=== PATIENT | male | born 1945 | race Caucasian/White ===

== ENCOUNTER → 2018-07-06 | Outpatient (CLI) | payer MEDICARE, OTHER ==
[~2018-07-06] VITALS: Ht 167.6 cm; Wt 81.3 kg
[~2018-07-06] MED LIST: ASPI-556 PO; CINA30 PO; CLOP75 PO; FOLI1CAP16 PO; INSLAN SQ; LIDOCAINE 2% 5 ML JELLY TP ONE; MIDO5TAB23 PO; NYSTATIN 15 GM CREAM [WOUND CENTER ONLY] TP ONE; PHOSLOC PO; SEVEC800 PO; TNFMISC
[2018-07-06 09:35] VITALS: BP 173/74
[2018-07-06 09:54] LABS: GLUCOMETER DEV NAME(LOC) HBW; GLUCOSE,POINT OF CARE 92 MG/DL (70-110)
== END | disposition home or self-care (01) ==
LOC: HBOWC 09:23
PROVIDERS: ATTEND Emergency Medicine
DX: S91.302D Unspecified open wound, left foot, subsequent encounter (principal); M85.88 Other specified disorders of bone density and structure, other site; E11.42 Type 2 diabetes mellitus with diabetic polyneuropathy; E11.51 Type 2 diabetes mellitus with diabetic peripheral angiopathy without gangrene; I12.0 Hypertensive chronic kidney disease with stage 5 chronic kidney disease or end stage renal disease; E11.22 Type 2 diabetes mellitus with diabetic chronic kidney disease; N18.6 End stage renal disease; B35.3 Tinea pedis; Z99.2 Dependence on renal dialysis; Z89.421 Acquired absence of other right toe(s); X58.XXXD Exposure to other specified factors, subsequent encounter
CPT/HCPCS: 11042; 87070; 87205

== ENCOUNTER → 2018-07-13 | Outpatient (CLI) | payer MEDICARE, OTHER ==
[~2018-07-13] MED LIST changes: -NYSTATIN 15 GM CREAM [WOUND CENTER ONLY] TP ONE; -TNFMISC
[2018-07-13 08:20] VITALS: BP 135/62
== END | disposition home or self-care (01) ==
LOC: HBOWC 08:05
PROVIDERS: ATTEND Emergency Medicine
DX: S91.302D Unspecified open wound, left foot, subsequent encounter (principal); M85.88 Other specified disorders of bone density and structure, other site; E11.42 Type 2 diabetes mellitus with diabetic polyneuropathy; E11.51 Type 2 diabetes mellitus with diabetic peripheral angiopathy without gangrene; I12.0 Hypertensive chronic kidney disease with stage 5 chronic kidney disease or end stage renal disease; E11.22 Type 2 diabetes mellitus with diabetic chronic kidney disease; N18.6 End stage renal disease; B35.3 Tinea pedis; Z99.2 Dependence on renal dialysis; Z89.421 Acquired absence of other right toe(s); X58.XXXD Exposure to other specified factors, subsequent encounter
CPT/HCPCS: 11042

== ENCOUNTER → 2018-07-20 | Outpatient (CLI) | payer MEDICARE, OTHER ==
[~2018-07-20] MED LIST changes: -LIDOCAINE 2% 5 ML JELLY TP ONE
[2018-07-20 08:44] VITALS: BP 127/63
== END | disposition home or self-care (01) ==
LOC: HBOWC 08:15
PROVIDERS: ATTEND Emergency Medicine
DX: S91.301D Unspecified open wound, right foot, subsequent encounter (principal); M85.88 Other specified disorders of bone density and structure, other site; E11.42 Type 2 diabetes mellitus with diabetic polyneuropathy; E11.51 Type 2 diabetes mellitus with diabetic peripheral angiopathy without gangrene; I12.0 Hypertensive chronic kidney disease with stage 5 chronic kidney disease or end stage renal disease; E11.22 Type 2 diabetes mellitus with diabetic chronic kidney disease; N18.6 End stage renal disease; B35.3 Tinea pedis; Z99.2 Dependence on renal dialysis; Z89.421 Acquired absence of other right toe(s); X58.XXXD Exposure to other specified factors, subsequent encounter